=== PATIENT | female | born 1960 | race Two or more races ===

== ENCOUNTER 2024-12-25 01:43 | Emergency (ER) | payer MEDICAID ==
[~2024-12-25] VITALS: Ht 165.1 cm; Wt 63.6 kg
[2024-12-25 02:48] LABS: Basophils # (auto) 0 10 ^3/uL (0-0.2); Basophils % (auto) 0.8 % (0.0-2.0); Eosinophils # (auto) 0.3 10 ^3/uL (0-0.8); Eosinophils % (auto) 4.7 % (0.0-7.0); Hematocrit 37.7 % (36.0-46.0); Hemoglobin 12.6 g/dL (12.2-16.2); Lymphocytes # (auto) 2.2 10 ^3/uL (0.4-5.4); Lymphocytes % (auto) 40.3 % (10.0-50.0); Mean Corpuscular Hgb Conc. 33.4 g/dL (32.0-36.0); Monocytes # (auto) 0.5 10 ^3/uL (0-1.3); Monocytes % (auto) 8.8 % (0.0-12.0); Neutrophils # (auto) 2.5 10 ^3/uL (1.6-8.6); Neutrophils % (auto) 45.4 % (37.0-80.0); Nucleated Red Blood Cells % 0.1 %; Platelet Count (auto) 205 10^3/uL (140-450); Red Blood Cells 4.33 10^6/uL (4.0-5.20); Red Cell Distribution Width 13.2 % (11.8-14.3); White Blood Cell 5.6 10^3/uL (4.4-10.8)
[2024-12-25 02:55] LABS: Potassium 3.8 mmol/L (3.5-5.1); Sodium 144 mmol/L (136-145)
[2024-12-25 02:56] LABS: Anion Gap 9 (5-15); Calcium 8.9 mg/dL (8.7-10.4); Carbon Dioxide 25 mmol/L (20-31)
[2024-12-25 03:01] LABS: Blood Urea Nitrogen 18 mg/dL (9-23)
[2024-12-25] MEDS ORDERED: amLODIPine BESYLATE 5 MG TAB PO ONE (03:30)
[2024-12-25 03:31] LABS: Chloride 110 mmol/L (98-107); Glucose 115 mg/dL (74-106)
--- NOTE | 2024-12-25 03:43 | DVH ---
EXAM: CT HEAD WITHOUT CONTRAST INDICATION: high bp headache TECHNIQUE: CT of the head without intravenous contrast. Radiation Dose Information: CT Dose: CTDI volume is 52.8 mGy. Dose-length product is 846.44 mGy*cm The dose indicators for CT are the volume Computed Tomography (CT) Dose Index (CTDIvol) and the Dose Length Product (DLP), and are measured in units of mGy and mGy-cm, respectively. These indicators are not patient dose, but values generated from the CT scanner acquisition factors. The report includes radiation exposure data for exposures received during this examination. COMPARISON: None FINDINGS: There is no evidence of acute intracranial hemorrhage, extra-axial collection, mass effect, midline s hift, herniation or hydrocephalus. The ventricles, sulci and cisterns are age appropriate. The feliciano-white differentiation is intact. The visualized paranasal sinuses and mastoid air cells are clear. The surrounding soft tissues and osseous structures are unremarkable. IMPRESSION: 1. No acute intracranial abnormality.
--- NOTE | 2024-12-25 03:50 | ED.PDOC ---
History of Present Illness HPI Comments 54-year-old female with a history of hypertension and hyperlipidemia brought in by family complaining of headache, dizziness and nausea. Patient states she has been unable to take her blood pressure medication (amlodipine hydrochlorothiazide) due to insurance issues. She states she is unable to purchase the medication, as it is expensive. She denies any vision changes, vomiting or focal weakness. At triage, blood pressure was 163/91. 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 Moist mucous membranes.) Neck: Full Range of Motion, Normal Inspection Respiratory: Lungs Clear, No Accessory Muscle Use, No Respiratory Distress, Normal Breath Sounds Cardiovascular: No Edema, No JVD, Regular Rate/Rhythm Breast Exam: Deferred Gastrointestinal: Non Tender, Soft Genitalia: Deferred Pelvic: Deferred Rectal: Deferred Extremities: Normal inspection, Normal range of motion, Non-tender, No pedal edema Neurologic: Alert (Oriented x4), Normal Affect, Normal Mood, Other (Ambulatory) Cerebellar Function: NOT DONE Reflexes: NOT DONE Skin: Dry, Normal Color, Warm Lymphatic: NOT DONE Was a procedure done? Was a procedure done?: No Differential Dx Considerations may include: Vascular headache, hypertensive urgency/emergency, intracranial hemorrhage, CVA, TIA, among others X-Ray, Labs, Meds, VS Vital Signs Date Time Temp Pulse Resp B/P (MAP) Pulse Ox O2 Delivery O2 Flow Rate FiO2 12/25/24 01:50 98.5 63 16 163/91 (115) 94 98.5 Lab Test 12/25/24 03:25 12/25/24 02:25 Range/Units Troponin I High Sensitivity Pending 24 </=34 ng/L White Blood Count 5.6 4.4-10.8 10^3/uL Red Blood Count 4.33 4.0-5.20 10^6/uL Hemoglobin 12.6 12.2-16.2 g/dL Hematocrit 37.7 36.0-46.0 % Mean Corpuscular Volume 87.0 80.0-100.0 fL Mean Corpuscular Hemoglobin 29.0 28.0-32.0 pg Mean Corpuscular Hemoglobin Concent 33.4 32.0-36.0 g/dL Red Cell Distribution Width 13.2 11.8-14.3 % Platelet Count 205 140-450 10^3/uL Mean Platelet Volume 9.1 6.9-10.8 fL Neutrophils (%) (Auto) 45.4 37.0-80.0 % Lymphocytes (%) (Auto) 40.3 10.0-50.0 % Monocytes (%) (Auto) 8.8 0.0-12.0 % Eosinophils (%) (Auto) 4.7 0.0-7.0 % Basophils (%) (Auto) 0.8 0.0-2.0 % Neutrophils # (Auto) 2.5 1.6-8.6 10 ^3/uL Lymphocytes # (Auto) 2.2 0.4-5.4 10 ^3/uL Monocytes # (Auto) 0.5 0-1.3 10 ^3/uL Eosinophils # (Auto) 0.3 0-0.8 10 ^3/uL Basophils # (Auto) 0 0-0.2 10 ^3/uL Nucleated Red Blood Cells 0.1 % Sodium Level 144 136-145 mmol/L Potassium Level 3.8 3.5-5.1 mmol/L Chloride Level 110 H 98-107 mmol/L Carbon Dioxide Level 25 20-31 mmol/L Anion Gap 9 5-15 Blood Urea Nitrogen 18 9-23 mg/dL Creatinine 0.90 0.550-1.02 mg/dL Glomerular Filtration Rate Calc 72 >90 mL/min BUN/Creatinine Ratio 20.0 10.0-20.0 Serum Glucose 115 H 74-106 mg/dL Calcium Level 8.9 8.7-10.4 mg/dL B-Type Natriuretic Peptide 51.40 0-100 pg/mL PROCEDURE(s): HWOCT - HEAD WITHOUT CONTRAST REASON: high bp headache ORDER NUMBER(s): [id number], ACCESSION NUMBER(s): [id number] EXAM: CT HEAD WITHOUT CONTRAST INDICATION: high bp headache TECHNIQUE: CT of the head without intravenous contrast. Radiation Dose Information: CT Dose: CTDI volume is 52.8 mGy. Dose-length product is 846.44 mGy*cm The dose indicators for CT are the volume Computed Tomography (CT) Dose Index (CTDIvol) and the Dose Length Product (DLP), and are measured in units of mGy and mGy-cm, respectively. These indicators are not patient dose, but values generated from the CT scanner acquisition factors. The report includes radiation exposure data for exposures received during this examination. COMPARISON: None FINDINGS: There is no evidence of acute intracranial hemorrhage, extra-axial collection, mass effect, midline shift, herniation or hydrocephalus. The ventricles, sulci and cisterns are age appropriate. The feliciano-white differentiation is intact. The visualized paranasal sinuses and mastoid air cells are clear. The surrounding soft tissues and osseous structures are unremarkable. IMPRESSION: 1. No acute intracranial abnormality. X-Ray, Labs, Meds, VS Comment 64-year-old female with a history of hypertension and hyperlipidemia presenting with elevated blood pressure, headache, dizziness and nausea Vitals remarkable for blood pressure 163/91 Exam unremarkable Rhythm strip independently interpreted by me: Sinus rhythm, rate 63, no ectopy. Head CT unremarkable CBC, basic metabolic panel, BNP and troponins unremarkable Patient treated with the following in the ED: Amlodipine 10 mg p.o., hydrochlorothiazide 12.5 mg p.o., Tylenol 1 g p.o., Zofran ODT 4 mg p.o. On re-evaluation, patient states symptoms have improved. Vitals were stable. Patient appears stable for discharge with close outpatient follow-up with her primary physician. Rx amlodipine, hydrochlorothiazide Time of 1ST Reevaluation: 04:10 Reevaluation 1ST: Unchanged Time of 2ND Reevaluation: 04:27 Reevaluation 2ND: Improved Patient Education/Counseling: Diagnosis, Treatment, Need For Follow Up Family Education/Counseling: No Family Present Departure 1 Departure Time of Disposition: :27 Impression: Primary Impression: Hypertensive urgency Additional Impression: Vascular headache Disposition: HOME / SELF CARE / HOMELESS Condition: Stable Additional Instructions: Your blood tests were unremarkable. Your head CT was unremarkable. I have prescribed blood pressure medication and pain medication. Follow-up with [facility] doctor in 1-2 days. Return to ER for persistent or worsening symptoms. e-Prescriptions Ondansetron Odt 4MG Tab (ZOFRAN PO) 4 Mg Tb 4 MG PO TID PRN, #30 TAB Prn nausea/vomiting ODT TAB-DISSOLVE IN MOUTH, THEN SWALLOW Prov: TATYANA WINSTON MD 12/25/24 Acetaminophen (Tylenol Extra Strength) 500 Mg Tab 1000 MG PO Q6HP PRN, #30 TAB Prn pain Prov: TATYANA WINSTON MD 12/25/24 Hydrochlorothiazide (Hydrochlorothiazide) 12.5 Mg Cap 1 CAP PO DAILY, #30 CAP 5 Refills Prov: TATYANA WINSTON MD 12/25/24 Amlodipine Besylate (Amlodipine Besylate) 10 Mg Tab 1 TAB PO DAILY, #30 TAB 5 Refills Prov: TATYANA WINSTON MD 12/25/24 Discharged With: Relative Critical Care Note Critical Care Time?: No Stability Stability form required: No Heart Score Heart Score: Heart Score Response (Comments) Value History N/A 0 EKG N/A 0 Age N/A 0 Risk Factors N/A 0 Troponin N/A 0 Total 0 I personally scribed for TATYANA WINSTON MD ([email or web address]) on 12/25/24 at 03:50. Electronically submitted by Macario Arguello ([email or web address]). TATYANA WINSTON MD December 25, 2024 03:50
[2024-12-25] MEDS ORDERED: AMLO1TAB23 PO (04:29)
[2024-12-25] MEDS ORDERED: HYDR12.59 PO (04:29)
[2024-12-25] MEDS ORDERED: ZOFR4T PO (04:30)
[2024-12-25] MEDS: ONDANSETRON ODT 4 MG TAB PO ONE (04:30)
[2024-12-25] MEDS ORDERED: ACET-1304 PO (04:30)
[2024-12-25] MEDS: ACETAMINOPHEN 500 MG TAB or CAP PO ONE (04:33)
[2024-12-25] MEDS: hydroCHLOROthiazide 25 MG TAB PO ONE (04:34)
[2024-12-25] MEDS: amLODIPine BESYLATE 5 MG TAB PO ONE (04:35)
[2024-12-25 05:00] VITALS: TEMP 98.1
[2024-12-25 05:29] VITALS: BP 169/87; PULSE 65; RESP 12; O2SAT 95
== END 2024-12-25 05:30 | disposition home or self-care (01) ==
LOC: EDBD 01:43 → ER 01:46
DX: I16.0 Hypertensive urgency (principal); G44.1 Vascular headache, not elsewhere classified; I10 Essential (primary) hypertension; E78.5 Hyperlipidemia, unspecified; Z98.890 Other specified postprocedural states
CPT/HCPCS: 36415; 70450; 80048; 82947; 83880; 84484; 85025; 99284; Q0162